=== PATIENT | male | born 1975 | race Caucasian/White ===

== ENCOUNTER → 2016-05-07 16:26 | Outpatient (CLI) | payer MEDICARE, MEDICAID | END | disposition home or self-care (01) | LOC: D.CT 16:26 | DX: R19.7 Diarrhea, unspecified (principal) ==

== ENCOUNTER 2016-06-13 13:22 | Emergency (ER) | payer MEDICARE, MEDICAID ==
[2016-06-13 13:58] LABS: BASOPHILS 0.1 % (0.0-2.0); EOSINOPHILS 0.6 % (0-7); HEMATOCRIT 41.1 % (42.0-54.0); HEMOGLOBIN 13.6 g/dL (13.5-17.5); IMMATURE GRANULOCYTES 0.3 % (0-5); LYMPHOCYTES 8.2 % (15-50); MCH 30.9 pg (26.0-34.0); MCHC 33.1 g/dL (31.0-37.0); MCV 93.4 fL (80.0-100.0); MEAN PLATELET VOLUME 9.8 fL (7.4-10.4); MONOCYTES 7.4 % (2-11); NEUTROPHILS 83.4 % (40-80); PLATELET COUNT 192 10x3/uL (130-400); RDW 14.9 % (11.5-14.5)
[2016-06-13 14:06] LABS: APTT 27.3 SECONDS (22.8-39.4)
[2016-06-13 14:07] LABS: INR 1.06 (0.85-1.17); PROTIME 13.7 SECONDS (11.6-15.0)
[2016-06-13 14:15] LABS: ALBUMIN 3.8 g/dL (3.4-5.0); ANION GAP 9.5 mmol/L (8-16); BILIRUBIN - TOTAL 0.7 mg/dL (0.2-1.3); CALCIUM 8.2 mg/dL (8.5-10.1); CARBON DIOXIDE 29.8 mmol/L (21.0-32.0); CREATININE - SERUM 1.2 mg/dL (0.6-1.3); POTASSIUM - SERUM 3.3 mmol/L (3.5-5.1); PROTEIN - SERUM 7.1 g/dL (6.4-8.2)
[2016-06-13 14:18] LABS: AMYLASE - SERUM 20 U/L (25-115); LIPASE 85 U/L (73-393)
== END 2016-06-13 16:23 | disposition home or self-care (01) ==
LOC: D.ER 13:22
PROVIDERS: Emergency Medicine
DX: K27.9 Peptic ulcer, site unspecified, unspecified as acute or chronic, without hemorrhage or perforation (principal); K29.20 Alcoholic gastritis without bleeding; I10 Essential (primary) hypertension; F17.200 Nicotine dependence, unspecified, uncomplicated

== ENCOUNTER 2016-08-28 19:25 | Inpatient (IN) | payer MEDICARE, MEDICAID ==
[~2016-08-28] VITALS: Ht 175.3 cm; Wt 92.0 kg
[2016-08-28 20:08] LABS: BASOPHILS 0.2 % (0-2); EOSINOPHILS 1.1 % (0-7); HEMATOCRIT 44.8 % (42.0-54.0); HEMOGLOBIN 14.8 g/dL (13.5-17.5); LYMPHOCYTES 17.9 % (15-50); MCH 30.3 pg (26.0-34.0); MCV 91.8 fL (80.0-100.0); MONOCYTES 6.5 % (2-11); NEUTROPHILS 73.3 % (40-80); RBC 4.88 10x6/uL (4.20-6.10); RDW 14.3 % (11.5-14.5); WBC 8.3 10x3/uL (4.8-10.8)
[2016-08-28 20:09] LABS: PLATELET COUNT 264 10x3/uL (130-400)
[2016-08-28 21:18] LABS: ALBUMIN 3.9 g/dL (3.4-5.0); ANION GAP 16.9 mmol/L (8-16); BILIRUBIN - TOTAL 0.46 mg/dL (0.2-1.3); CALCIUM 8.7 mg/dL (8.5-10.1); CARBON DIOXIDE 25.8 mmol/L (21.0-32.0); CREATININE - SERUM 1.4 mg/dL (0.6-1.3); POTASSIUM - SERUM 3.7 mmol/L (3.5-5.1); PROTEIN - SERUM 7.6 g/dL (6.4-8.2)
[2016-08-29] VITALS: BP 154/101; BP 154/106; Ht 175.3 cm; Wt 92.0 kg
[2016-08-29] MEDS ORDERED: PROTONIX40 MG PO (00:33)
[2016-08-29] MEDS ORDERED: ZIAC 10-6.25 MG1 TAB PO (00:34)
[2016-08-29] MEDS ORDERED: HYDROCODONE-APA1 TAB PO (00:34)
[2016-08-29] MEDS ORDERED: CYCLOBENZAPRINE10 MG PO (00:35)
[2016-08-29] MEDS ORDERED: XANAX1 MG PO (00:35)
[2016-08-29] MEDS ORDERED: AMBIEN10 MG PO (00:37)
--- NOTE | 2016-08-29 01:01 | NUR ---
PT ARRIVED VIA STRETCHER FORM ER AT 2334 WITH DX HEMOPTYSIS. PT ASKING FOR A COKE ON ARRIVAL. EXPLAINED TO PT THAT COLA WILL EXACERBATE HIS ULCERS. PT STATED VERBAL UNDERSTANDING. ADMISSIN ASSESSMENT, HISTORY AND HOME MED LIST COMPLETED BY 0025 HRS. NS AT 125CC/HR INITIALTED TO RFA IV. MORPHNE 4MG SIVP GIVNE AT 0050 HRS. FOR C/O ABD AND ARM PIAN 11/04. PROTONIX DRIP 80MG/NS 100CC STARTED AT 10CC/HR AFTER MORPHINE ADMINISTRATION. NON-SLIP SOCKS PLACED ON BILAT FEET ALSO. WILL CONTINUE TO MONITOR. SR UP X2, CALL LIGHT WITHIN REACH.
--- NOTE | 2016-08-29 02:16 | NUR ---
PT AWAKE; STATES PAIN NOW 5/10. REQUESTING PAIN MEDS. INFORMED NEXT DOSE NOT UNTIL 0500. WILL CONTINUE TO MONITOR.
[2016-08-29 04:00] VITALS: BP 165/108
--- NOTE | 2016-08-29 04:22 | NUR ---
PT REQUESTING PAIN MEDS. INFORMED NOT DUE UNTIL 444. WILL CONTINUE TO MONITOR.
[2016-08-29 05:01] LABS: HEMATOCRIT 40.5 % (42.0-54.0); HEMOGLOBIN 12.8 g/dL (13.5-17.5); MCH 29.6 pg (26.0-34.0); MCHC 31.6 g/dL (31.0-37.0); MCV 93.5 fL (80.0-100.0); MEAN PLATELET VOLUME 9.8 fL (7.4-10.4); RBC 4.33 10x6/uL (4.20-6.10); RDW 14.3 % (11.5-14.5)
[2016-08-29 05:15] LABS: PLATELET COUNT 196 10x3/uL (130-400); WBC 5.2 10x3/uL (4.8-10.8)
--- NOTE | 2016-08-29 06:12 | NUR ---
VSS. PT STATES MINIMAL ABD PAIN BUT HAS C/O PULLED MUSCLE PAIN TO L ARM. WILL CONTINUE TO MONITOR.
[2016-08-29 06:43] LABS: LYMPHOCYTES 34 % (15-50); MONOCYTES 6 % (2-11); NEUTROPHILS 58 % (40-80); PLATELET ESTIMATE NORMAL
[2016-08-29 06:44] LABS: PLATELET MORPHOLOGY NORMAL PLT MORPH
--- NOTE | 2016-08-29 07:00 | NUR ---
RECEIVED REPORT. ASSUMED CARE OF PATIENT. CALL LIGHT WITHIN REACH. FLUIDS INFUSING ORDERED AT 125ML/HR. ALERT/ORIENTED. COMPLAINS OF EPIGASTRIC PAIN, PAIN IS BETTER THAN WHEN FIRST COMING TO ER LAST NOC. DENIES NEEDS AT THIS TIME. NO DISTRESS.
[2016-08-29 08:46] VITALS: BP 167/108
--- NOTE | 2016-08-29 09:18 | NUR ---
MEDICATED FOR PAIN AT THIS TIME. PATIENT STATES MORPHINE DOES NOT WORK AND ASKING FOR DILAUDID. EXPLAINED THERE IS NO ORDER FOR DILAUDID AT THIS TIME. PT. VERBALIZED UNDERSTANDING.
--- NOTE | 2016-08-29 11:41 | NUR ---
MEDICATED FOR ANXIETY AT THIS TIME. BP MED NOT AVAILABLE ON UNIT FROM PHARMACY. WILL ADMINISTER ONCE AVAILABLE. PATIENT HAS HIS DAUGHTER AND GIRLFRIEND AT BEDSIDE PER PATIENT. CALL LIGHT WITHIN REACH. IV FLUIDS INFUSING ORDERED.
[2016-08-29 12:12] VITALS: BP 171/112
--- NOTE | 2016-08-29 12:38 | NUR ---
MEDICATION STILL REMAINS UNAVAILABLE FROM PHARMACY AT THIS TIME.
--- NOTE | 2016-08-29 13:47 | NUR ---
ZIAC CONTINUES TO BE UNAVAILABLE FROM PHARMACY.
[2016-08-29 16:23] VITALS: BP 161/108
--- NOTE | 2016-08-29 16:36 | NUR ---
CONSENTS SIGNED AND ON THE CHART FOR EGD WITH . EKG DONE AND ON THE CHART.
--- NOTE | 2016-08-29 17:03 | NUR ---
PATIENT LEFT VIA GERNEY AT THIS TIME FOR EGD. NO DISTRESS UPON LEAVING UNIT.
--- NOTE | 2016-08-29 17:38 | NUR ---
REPORT RECEIVED FROM TOMAS IN GI LAB. PATIENT WILL BE BACK TO UNIT SOON.
--- NOTE | 2016-08-29 18:03 | NUR ---
RECEIVED BACK TO ROOM. PATIENT AMBULATED FROM [facility], INTO PATIENT ROOM, TO RESTROOM AND THEN TO BED. RESP EVEN AND UNLABORED. CALL LIGHT PLACED WITHIN REACH. NO DISTRESS.
--- NOTE | 2016-08-29 18:06 | NUR ---
CALLED QUYNH PER PATIENT REQUEST, [phone], TO LET HER KNOW THAT PATIENT WOULD BE SPENDING THE NIGHT BUT THAT HE DID GREAT WITH THE EGD AND THAT HE IS BACK IN HIS ROOM. QUYNH THANKED THIS DATA ANALYTICS SPECIALIST FOR CALLING.
[2016-08-29 20:00] VITALS: BP 153/98
[2016-08-30] VITALS (7 sets, daily range): BP systolic 138–161; BP diastolic 66–121
--- NOTE | 2016-08-30 00:28 | NUR ---
INITIAL ROUNDS COMPLETED AT 1915 HRS. PT WATCHING TV. NO DISTRESS NOTED. ASSESSMETN COMPTED AT 2000 HRS. VSS. IV TO RFA WITH NS AT 50CC/HR AND PROTONIX DRIP AT 8MG /HR. IV PATENT. LUNGS CTA. PT CONTINUES TO HAVE C/O L SHOULDER PAIN. PT UP AD SIMONE. PM MMEDS GIVEN PER ORDERS. CARAFATE GIVEN AND EXPLAINED TO PT. IV CHANGED TO SL AT 2129 HRS. MORPHINE 4MG SIVP GIVNE FOR C/O L SHOULDER PAIN. SEE MAY. PT CURRENTLY RESTING WITH EYES CLOSED. RESP EVEN AND REGULAR. SR UP X2, CALL LIGHT WITHIN REACH.
--- NOTE | 2016-08-30 01:34 | NUR ---
PT REQUESTING A COLA. EXPLAINED TO PT THAT THE PHOSPHORIC ACID IN COLA WILL EXACERBATE HIS EROSIVE ESOPHAGITIS. PT BECAME ANGRY AND CUSSED AT STAFF. WILL CONTINUE TO MONITOR.
--- NOTE | 2016-08-30 02:18 | NUR ---
MORPHINE 4MG SIVP GIVEN FOR C/O LSHOULDER PAIN. WILL CONTINUE TO MONITOR.
--- NOTE | 2016-08-30 04:24 | NUR ---
PT OUT IN HALLS REQUESTING PAIN MES. INFORMED NEXT MORPHINE DOSE DUE AT 0600. ENCOURAGED PT TO WEAR SLING TO L ARM FOR SUPPORT. WILL CONTINUE TO MONITOR.
[2016-08-30 05:56] LABS: BASOPHILS 0.3 % (0-2); EOSINOPHILS 1.5 % (0-7); HEMATOCRIT 42.4 % (42.0-54.0); HEMOGLOBIN 13.3 g/dL (13.5-17.5); IMMATURE GRANULOCYTES 0.9 % (0-5); LYMPHOCYTES 20.5 % (15-50); MCH 29.4 pg (26.0-34.0); MCHC 31.4 g/dL (31.0-37.0); MCV 93.8 fL (80.0-100.0); MEAN PLATELET VOLUME 10.2 fL (7.4-10.4); NEUTROPHILS 69.8 % (40-80); PLATELET COUNT 201 10x3/uL (130-400); RBC 4.52 10x6/uL (4.20-6.10); RDW 14.1 % (11.5-14.5)
[2016-08-30 05:58] LABS: WBC 6.8 10x3/uL (4.8-10.8)
--- NOTE | 2016-08-30 06:03 | NUR ---
VSS THROUGHOUT NIGHT. PT STATES IV MORPHINE NOT CONTROLLED WITH IV MORPHINE 4MG Q4HRS. WILL CONTINUE TO MONITOR. SR UP X2,CALL LIGHT WITHIN REACH.
[2016-08-30 06:26] LABS: ALBUMIN 3.3 g/dL (3.4-5.0); ANION GAP 12.1 mmol/L (8-16); BILIRUBIN - TOTAL 0.34 mg/dL (0.2-1.3); CALCIUM 8.3 mg/dL (8.5-10.1); CARBON DIOXIDE 29.4 mmol/L (21.0-32.0); CREATININE - SERUM 1.4 mg/dL (0.6-1.3); POTASSIUM - SERUM 3.5 mmol/L (3.5-5.1); PROTEIN - SERUM 6.5 g/dL (6.4-8.2)
--- NOTE | 2016-08-30 07:19 | NUR ---
AM ROUNDS - PT APPEARS TO BE SLEEPING. EQUAL AND NON LABORED BREATHING. CALL SANCHEZ IN REACH. BED AT LOWSET POSITION, SIDE RAILS UP X2. IV TO RIGHT FA, SL. WILL CONTINUE TO MONITOR
--- NOTE | 2016-08-30 10:42 | NUR ---
RATIONALE FOR SCD'S EXPLAINED. REFUSED SCD'S
--- NOTE | 2016-08-30 14:34 | NUR ---
R.FA PIV INFILTRATED. D/C WITH CATHETER TIP FULLY INTACT. 22 GUAGE PLACED IN L.UPPER ARM X1 STICK. DATED, INITIALED AND SL. PT LEAVING WITH THREAD WEAVER FOR XRAY, DENIES ANY FURTHER NEEDS AT THIS TIME. WILL CPOC.
--- NOTE | 2016-08-30 17:31 | OP ---
PATIENT NAME: YELENA KOENIG MEDICAL RECORD: [id number] :77 LOCATION:D.M2 D.2109 ADMISSION DATE:08/28/16 SURGEON: YISEL DEL TORO MD DATE OF OPERATION: 08/29/2016 PROCEDURE: EGD with biopsy. ATTENDING PHYSICIAN: Bhumi Hayden MD PRIMARY CARE PHYSICIAN: Ruben Horn MD INDICATIONS: Mr. Koenig is a 40-year-old gentleman with a history of peptic ulcer disease and panic attacks, who presented to the Emergency Department secondary to episode of hematemesis. Recently, he had a similar episode and was evaluated at [facility] Emergency Department, hemoglobin and hematocrit was noted to be normal and he was discharged with an appointment for an outpatient EGD on 08/31/[address] Piper. During his ER evaluation at [facility], he had a CT scan of the abdomen and pelvis that showed esophageal wall thickening in the distal esophagus. Last October 2015, he had an EGD in [place] with findings of peptic ulcer disease (he was drinking whiskey and taking Aleve at that time). He no longer uses nonsteroidal anti-inflammatory drugs and has an occasional alcoholic beverage. He presents for inpatient EGD order today. His hemoglobin is 12.8, hematocrit 40.5. He presents for inpatient EGD. PREMEDICATIONS: Total IV anesthesia (propofol 160 mg, Versed 2 mg) INSTRUMENT: Olympus video gastroscope. PROCEDURE AND FINDINGS: After receiving informed consent, Mr. Koenig's posterior pharynx was anesthetized with Cetacaine spray, placed in left lateral decubitus position, sedated as per anesthesia. After achieving an adequate level of sedation, gastroscope was introduced per orally and advanced to the duodenum without difficulty. The esophageal mucosa was notable for confluent ulcers in the distal third of the esophagus (mild to moderate), nonhemorrhagic and distal esophageal biopsies were obtained. A small sliding type hiatal hernia was present. There was a moderate amount of retained old food in the gastric body of the stomach, but frequent gastric peristaltic waves were noted. In the cardia was a 0.5 cm sessile polyp that was biopsied. There are multiple prepyloric and antral erosions and the antral biopsies were obtained to rule out Helicobacter pylori. Pylorus was patent and competent. Duodenal mucosa was without erythema or ulcers, appeared normal through the second portion. Biopsies were taken from the second portion of the duodenum to rule out celiac disease. Gastroscope was then withdrawn. Mr. Koenig tolerated the procedure well, no immediate complications. ASSESSMENT: 1. Ulcerative esophagitis (source of hematemesis). 2. Small sliding type hiatal hernia. 3. Gastric polyp in the cardia. 4. Erosive gastritis. RECOMMENDATIONS: 1. Avoid nonsteroidal anti-inflammatory drugs. 2. Protonix 40 mg p.o. b.i.d. and continue. OPERATIVE REPORT [id number] YELENA KOENIG 3. Carafate 1 gram 3 times a day for 1 month. 4. Follow up histopathology. 5. Recommend follow up EGD in 2 months to document healing of ulcerative esophagitis. TRANSINT:[id number] Voice Confirmation ID: [id number] DOCUMENT ID: [id number] YISEL DEL TORO MD at 1731 CC: JULIANE PIPER MD and RUBEN HORN MD [id number] DICTATION DATE: 08/29/16 174 ADOPTION COORDINATOR: 08/29/16 1936 ADM IN [facility] [address] [place] [address]
--- NOTE | 2016-08-30 18:34 | NUR ---
PT HAD ME PAGED DOCTOR REQUESTING HIS AMBIEN FOR SLEEP. ALEXANDRO MCRAE APN CALLED BACK BUT ONLY WANTED PT TO HAVE MELATONIN AND NOT AMBIEN. ORDERS PLACED. WILL CTM.
--- NOTE | 2016-08-30 23:26 | NUR ---
NURSE ROUNDS 20:30 - PT AWAKE, ALERT, ORIENTED, REQUESTING HIS PAIN MEDICATION AND PRN SLEEP MEDS. PT STATES HE DOES NOT WANT TO BE BOTHERED THE REST OF THE NIGHT, AND I EXPLAINED TO PT THAT IF I GIVE HIM DILAUDID, XANAX, AND AMBIEN, THEN WE WILL HAVE TO GET HIS V/S Q 4 HOURS AND PRN. PT STATED THAT HE WOULD ALLOW US TO DO THAT. PT DENIES ANY FURTHER NEEDS. CONTINUE TO MONITOR CLOSELY. BED LOW, CALL LIGHT IN REACH, SIDE RAILS X 2, HOB 10 DEGREES. PT IS UP AD SIMONE AND STATES THAT HE FEELS MUCH BETTER FROM WHEN HE CAME IN.
--- NOTE | 2016-08-30 23:55 | NUR ---
PT REMOVED HIS IV FROM HIS UPPER LEFT ARM R/T INCREASED PAIN AND DISCOMFORT. PT DID SO WITHOUT WAITING FOR ME TO GET TO HIM I HAVE BEEN WITH OTHER PATIENTS. PT IS ASKING FOR MORE XANAX, AND PAIN MEDICATION AT THIS TIME, IN WHICH I TOLD HIM HE COULD NOT HAVE ANYTHING UNTIL 2:30 AM. I HAVE ACTUALLY TOLD PT THIS TWICE, ONCE BEING AT 20:30 WITH HIS FIRST DOSE. PT IS CLEARLY AGITATED, BUT DENIES ANY OTHER NEEDS. CONTINUE TO MONITOR CLOSELY.
--- NOTE | 2016-08-31 01:31 | NUR ---
PT WALKED OUT TO NURSES DESK ASKING FOR MORE MEDICATIONS AND ASKING WHICH ONES HE CAN HAVE AT THIS TIME. I EXPLAINED TO PT THAT THE ONLY MEDICATION HE CAN HAVE WILL BE THE PRN DILAUDID AND NOT UNTIL 02:30 SINCE IT IS Q 6 HOURS PRN. CONTINUE TO MONITOR. WILL RESITE IV R/T PT REMOVING THE FIRST ONE.
[2016-08-31 03:43] VITALS: BP 151/109
--- NOTE | 2016-08-31 04:50 | NUR ---
DUE TO PT REMOVING HIS IV FROM HIS LEFT UPPER ARM, I ADMINISTERED HIS PRN DILAUDID IM IN THE RIGHT VENTROGLUTEAL. CONTINUE TO MONITOR CLOSELY.
[2016-08-31 05:42] LABS: BASOPHILS 0.2 % (0-2); EOSINOPHILS 1.9 % (0-7); HEMATOCRIT 40.1 % (42.0-54.0); HEMOGLOBIN 12.8 g/dL (13.5-17.5); MCH 29.6 pg (26.0-34.0); MCHC 31.9 g/dL (31.0-37.0); MCV 92.8 fL (80.0-100.0); MEAN PLATELET VOLUME 10.2 fL (7.4-10.4); MONOCYTES 8.5 % (2-11); NEUTROPHILS 59.4 % (40-80); PLATELET COUNT 190 10x3/uL (130-400); RBC 4.32 10x6/uL (4.20-6.10); RDW 13.9 % (11.5-14.5)
[2016-08-31 05:57] LABS: WBC 4.1 10x3/uL (4.8-10.8)
[2016-08-31 06:09] LABS: ALBUMIN 3.1 g/dL (3.4-5.0); ANION GAP 9.9 mmol/L (8-16); BILIRUBIN - TOTAL 0.36 mg/dL (0.2-1.3); CALCIUM 8.5 mg/dL (8.5-10.1); CARBON DIOXIDE 31.8 mmol/L (21.0-32.0); CREATININE - SERUM 1.4 mg/dL (0.6-1.3); POTASSIUM - SERUM 3.7 mmol/L (3.5-5.1); PROTEIN - SERUM 6.3 g/dL (6.4-8.2)
--- NOTE | 2016-08-31 07:30 | NUR ---
PT IS SITTING ON THE SIDE OF HIS BED. ALERT AND ORIENTED X 3. HE VOICED COMPLAINT OF LEFT SHOULDER PAIN AT ALL TIMES, NOT RELIEVED BY PAIN MEDS. WILL NOTIFY MD. CALL LIGHT IS IN EASY REACH.
[2016-08-31 09:25] VITALS: BP 128/66
--- NOTE | 2016-08-31 09:31 | NUR ---
RESTS WITH EYES CLOSED. CALL LIGHT IN REACH. WILL MONITOR NEEDS.
--- NOTE | 2016-08-31 12:09 | NUR ---
PT IS RESTING IN HIS ROOM EATING LUNCH. NO ACUTE DISTRESS NOTED.
[2016-08-31 12:21] VITALS: BP 149/89
--- NOTE | 2016-08-31 14:15 | NUR ---
PT IS RESTING QUIETLY IN BED WITH EYES CLOSED. NO ACUTE DISTRESS NOTED.
[2016-08-31 15:32] VITALS: BP 124/97
--- NOTE | 2016-08-31 15:57 | NUR ---
PT RESTING IN BED WITH EYES OPEN. NO NEEDS VOICED.
--- NOTE | 2016-08-31 19:30 | NUR ---
RECEIVED PT IN ROOM WALKING AROUND DENIES ANY NEEDS OR DISCOMFORT AT THIS TIME NAD NOTED
[2016-08-31 20:20] VITALS: BP 161/94
[2016-08-31 23:52] VITALS: BP 139/73
[2016-09-01 03:53] VITALS: BP 141/72
[2016-09-01 05:23] LABS: BASOPHILS 0.2 % (0-2); EOSINOPHILS 2.8 % (0-7); HEMATOCRIT 39.1 % (42.0-54.0); HEMOGLOBIN 12.3 g/dL (13.5-17.5); IMMATURE GRANULOCYTES 1.5 % (0-5); LYMPHOCYTES 27.4 % (15-50); MCH 29.4 pg (26.0-34.0); MCHC 31.5 g/dL (31.0-37.0); MCV 93.5 fL (80.0-100.0); MEAN PLATELET VOLUME 10.2 fL (7.4-10.4); MONOCYTES 8.7 % (2-11); NEUTROPHILS 59.4 % (40-80); PLATELET COUNT 191 10x3/uL (130-400); RBC 4.18 10x6/uL (4.20-6.10); RDW 14.1 % (11.5-14.5); WBC 4.7 10x3/uL (4.8-10.8)
[2016-09-01 05:52] LABS: ANION GAP 10.1 mmol/L (8-16); BILIRUBIN - TOTAL 0.3 mg/dL (0.2-1.3); CALCIUM 8.5 mg/dL (8.5-10.1); CARBON DIOXIDE 31.4 mmol/L (21.0-32.0); CREATININE - SERUM 1.4 mg/dL (0.6-1.3); POTASSIUM - SERUM 3.5 mmol/L (3.5-5.1); PROTEIN - SERUM 6.1 g/dL (6.4-8.2)
--- NOTE | 2016-09-01 07:53 | NUR ---
AM ROUNDING DONE WITH NO COMPLAINTS OR REUQESTS AT PRESENT TIME. NO IV AT THIS TIME SEEN. ON ROOM AIR. ON EP, LAB VALUES ARE GOOD. DENIES ANY NAUSEA AT PRESENT TIME. WILL MONITOR.
--- NOTE | 2016-09-01 10:09 | NUR ---
FSBS IS NOW 63. I CC IM OF GLUCOGEN GIVEN PATIENT STATES THAT HE CAN NOT EAT. WILL CONTINUE TO MONITOR.
[2016-09-01 16:03] VITALS: BP 175/105
--- NOTE | 2016-09-01 16:23 | NUR ---
SALINE LOCK OF 22 G TO RIGHT HAND PER EMILY DAVID RN ICU.
--- NOTE | 2016-09-01 17:34 | NUR ---
DENIES NEEDS AT PRESENT TIME. WILL BE NPO PAST MIDNIGHT.
[2016-09-01 20:00] VITALS: BP 168/92
--- NOTE | 2016-09-01 20:00 | NUR ---
PT IN BED WITH HOB UP FOR COMFORT. WATCHING TV. ALERT & ORIENTED. ELECTROLYTE PROTOCOL. ORIF LEFT HUMERUS SURGERY SCHEDULED FOR 09/02/16. NPO AT MIGNIGHT. PT STATES HE HAS A PAIN LEVEL OF 8/10 IN LEFT SHOULDER. BED IN LOWEST POSITION AND CALL LIGHT WITHIN REACH.
--- NOTE | 2016-09-02 | NUR ---
PT IN BED WITH HOB UP FOR COMFORT. RESTING QUIWTLY. BED IN LOWEST POSITION AND CALL LIGHT WITHIN REACH.
--- NOTE | 2016-09-02 03:41 | NUR ---
TOLL COLLECTOR SUPERVISOR AT BEDSIDE TO OBTAIN VITALS, CALL LIGHT IN REACH. WILL CONTINUE WITH PLAN OF CARE.
--- NOTE | 2016-09-02 03:46 | NUR ---
PT UP WALKING LAPS IN HALLWAY WITH A STEADY GATE.
--- NOTE | 2016-09-02 03:56 | NUR ---
PT'S HOLA PRESSED CALL LIGHT. I WENT INTO PT'S ROOM. PT WAS LAYING ON BED. PT'S FIANCE STATED HE HAD TO PICK HER UP OFF THE GROUND. BUT GAVE NO SPECIFICS. I GAVE PT HER NORCO. AND OFFERED ICE AND HEAT AND PT REFUSED BOTH AND STATED, "I CAN NOT DO THAT. IT DOESN.T HELP." PT'S HOLA THEN STATED, "WE KNOW WHAT WORKS. AND THE DOCTORS WONT DO ANYTHING."
[2016-09-02 04:00] VITALS: BP 146/95
--- NOTE | 2016-09-02 04:02 | NUR ---
PT STATED, "I ALMOST FELL OUT OF BED AND HAD TO CATCH MYSELF. AND IT HURT MY SHOULDER." PT HAS A LADY SLEEPING IN BED WITH HIM.
--- NOTE | 2016-09-02 05:47 | NUR ---
PT LYING IN BED WITH WOMAN. EYES CLSOED CHESAT RISING AND FALLING BED IN LOWEST POSITION AND CALL IGHT WITHIN REACH.
[2016-09-02 06:02] LABS: BASOPHILS 0.4 % (0-2); EOSINOPHILS 1.8 % (0-7); IMMATURE GRANULOCYTES 1.8 % (0-5); LYMPHOCYTES 25.5 % (15-50); MCH 29.8 pg (26.0-34.0); MCHC 31.7 g/dL (31.0-37.0); MEAN PLATELET VOLUME 10.2 fL (7.4-10.4); MONOCYTES 10.4 % (2-11); NEUTROPHILS 60.1 % (40-80); PLATELET COUNT 216 10x3/uL (130-400); RBC 4.36 10x6/uL (4.20-6.10)
[2016-09-02 06:26] LABS: ALBUMIN 3.3 g/dL (3.4-5.0); ANION GAP 11.4 mmol/L (8-16); BILIRUBIN - TOTAL 0.31 mg/dL (0.2-1.3); CALCIUM 8.9 mg/dL (8.5-10.1); CARBON DIOXIDE 32.4 mmol/L (21.0-32.0); CREATININE - SERUM 1.4 mg/dL (0.6-1.3); POTASSIUM - SERUM 3.8 mmol/L (3.5-5.1); PROTEIN - SERUM 6.5 g/dL (6.4-8.2)
--- NOTE | 2016-09-02 07:17 | NUR ---
AM ROUNDING DONE WITH PATIENT APPEARING TO BE ALSEEP IN PATIENT WITH FEMALE MEMBER. NPO PAST MIDNIGHT FOR SURGERY THIS AM.
[2016-09-02 08:16] VITALS: BP 151/104
--- NOTE | 2016-09-02 10:27 | NUR ---
WENT TO FLUSH IV AGAIN TO RIGHT HAND AND IT IS OUT. WILL ATTEMPT ANOTHER IV FOR SURGERY.
--- NOTE | 2016-09-02 11:00 | NUR ---
20 GAUGE IV SITED TO RIGHT AC WITH ONE ATTEMPT. SECURED WITH TAPE, COVERED WITH OP SITE. INITIALED, DATED. TOLERATED WELL.
[2016-09-02 11:42] VITALS: BP 156/99
--- NOTE | 2016-09-02 15:15 | NUR ---
TO OR VIA BED.
--- NOTE | 2016-09-02 17:37 | NUR ---
PAULETTE FROM ANESTHESIA ADMINISTERED LABATELOL FOR PT BP AT THIS TIME.
--- NOTE | 2016-09-02 17:52 | NUR ---
STILL OFF FLOOR AT THIS TIME.
--- NOTE | 2016-09-02 18:08 | NUR ---
RETURNS FROM RR WITH O2 AT 4L PER NC. SLING WITH HAND BALL TO LEFT SIDE. ABLE TO WIGGLE FINGERS WITHOUT PROBLEMS. WILL MONITOR.
[2016-09-02 18:11] VITALS: BP 175/94
--- NOTE | 2016-09-02 19:10 | NUR ---
AWAKE, ORIENTED X 4. HAD FEW SIPS OF WATER, SWALLOWING WITHOUT DIFFICULTY. REQUESTED PAIN MEDICATION. RATING PAIN LEVEL AT 10 ON 0-10 NUMBER SCALE OF HIS LEFT SHOULDER. WILL CHECK ON WHEN HE CAN HAVE NEXT DOSE. IV IN R AC WITH NS INFUSING AT 20 ML/HR, INTACT. A VISITOR IS PRESENT IN ROOM.
[2016-09-02 20:00] VITALS: BP 166/113
--- NOTE | 2016-09-02 20:40 | NUR ---
AMBULATING IN ROOM. REQUESTED PAIN MEDICATION FOR PAIN OF LEFT SHOULDER RATED AT A 10 0N 0-10 NUMBER SCALE. ADMIN SCHED MEDS AND SET UP TRUCK CRANE OPERATOR HELPER WITH DILAUDID AT 0.2MG Q10 MIN WITH 4MG/4HR LOCK OUT. NO OTHER NEEDS VOICED.
--- NOTE | 2016-09-02 23:02 | NUR ---
REQUESTED TO BE UNHOOK FROM IV TO AMBULATE TO BR. AMBULATED WITH STEADY GAIT. NO S/S OF SEDATION. REQUESTED AMBIEN AND LIGHTS OUT TO SLEEP.
[2016-09-03 04:00] VITALS: BP 198/125
--- NOTE | 2016-09-03 04:30 | NUR ---
PULLED IV OUT. RESITED IN LEFT HAND 20 G.
[2016-09-03 06:04] LABS: BASOPHILS 0.1 % (0-2); EOSINOPHILS 0.1 % (0-7); HEMATOCRIT 39.3 % (42.0-54.0); HEMOGLOBIN 12.5 g/dL (13.5-17.5); IMMATURE GRANULOCYTES 0.6 % (0-5); LYMPHOCYTES 5.3 % (15-50); MCH 29.9 pg (26.0-34.0); MCHC 31.8 g/dL (31.0-37.0); MEAN PLATELET VOLUME 10.4 fL (7.4-10.4); NEUTROPHILS 87.9 % (40-80); PLATELET COUNT 259 10x3/uL (130-400); RBC 4.18 10x6/uL (4.20-6.10)
[2016-09-03 06:08] LABS: WBC 12.2 10x3/uL (4.8-10.8)
[2016-09-03 06:48] LABS: ALBUMIN 3.4 g/dL (3.4-5.0); ANION GAP 17.7 mmol/L (8-16); BILIRUBIN - TOTAL 0.3 mg/dL (0.2-1.3); CREATININE - SERUM 1.7 mg/dL (0.6-1.3); PROTEIN - SERUM 6.8 g/dL (6.4-8.2)
[2016-09-03 06:50] LABS: CARBON DIOXIDE 23.3 mmol/L (21.0-32.0)
--- NOTE | 2016-09-03 07:26 | NUR ---
AM ROUNDING DONE WITH PATIENT AND FEMALE MEMBER ALSEEP IN BED. DRESSING TO LEFT SHOULDER, DRY AND INTACT. IV OF NS INFUSING AT 30 CC TO RIGHT HAND ALONG WITH BAG TESTER DILAUDID FOR PAIN CONTROL. ON ROOM AIR. ON EP, K+ IS 4.0. WILL MONITOR AND ASSESS WHEN AWAKE
[2016-09-03 08:00] VITALS: BP 170/107
--- NOTE | 2016-09-03 08:06 | NUR ---
DARIO ZUNIGA WITH ORTHO HERE AND REMOVED DRESSING FROM LEFT SHOULDER. CLIPS INTACTT, BRUISING SEEN TO LEFT SHOULDER POST-OP. CLEAN MEPILEX BORDER AG PLACED TO INCISION SITE AND SLING RE-APPLIED. PATIENT WAS INSTRUCTED TO WEAR SLING.
[2016-09-03] MEDS ORDERED: DILAUDID4 MG PO (08:11)
--- NOTE | 2016-09-03 09:20 | NUR ---
PATIENT IS SITTING UP IN CHAIR EATING BREAKFAST. STREET RAILWAY LINE INSTALLER D'C ORDERED AND IV IS SALINE LOCK FOR NOW.
--- NOTE | 2016-09-03 11:32 | NUR ---
Patient Name: YELENA KOENIG Admission Status: ER Accout number: [id number] Admission Date: 08-31-2016 : 1975 Admission Diagnosis:HEMATEMESIS Attending: SHANNAN Current LOS: 3 Anticipated DC Date: 09-03-2016 Planned Disposition: Home Primary Insurance: [facility] Discharge Planning Comments: * Is the patient Alert and Oriented? Yes 0 * How many steps to enter\exit or inside your home? 18 0 * PCP DR. SMITH 0 * Pharmacy [facility] 0 * Preadmission Environment Home with Family 0 * ADLs Independent 0 * Equipment None 0 * Other Equipment NO MEDICAL EQUIPMENT PROVIDER PREFERENCE 0 * List name and contact numbers for known caregivers / representatives who currently or will assist patient after discharge: ROSIBEL KOENIG, SPOUSE, 0 * Community resources currently utilized None 0 * Please name any agencies selected above. NONE 0 * Additional services required to return to the preadmission environment? No 0 * Can the patient safely return to the preadmission environment? Yes 0 * Has this patient been hospitalized within the prior 30 days at any hospital? No 0 CM MET WITH PT IN ROOM TO DISCUSS DISCHARGE PLANNING AND NEEDS. PT REPORTS LIVING AT HOME INDEPENDENTLY WITH HIS MINOR CHILDREN. PT HAS NO MEDICAL EQUIPMENT AND NO OUTSIDE SERVICES ASSISTING IN THE HOME. CM DISCUSSED AVAILABILITY OF HOME HEALTH, REHAB SERVICES AND MEDICAL EQUIPMENT. PT DENIES DISCHARGE NEEDS, REPORTS HIS GIRLFRIEND OR FRIEND WILL PICK HIM UP FOR DISCHARGE HOME. IMPORTANT MESSAGE FROM MEDICARE PROVIDED AND EXPLAINED. Seating Captain: Mane Sweeney
[2016-09-03] MEDS ORDERED: PROTONIX40 MG PO (11:52)
[2016-09-03] MEDS ORDERED: CARAFATE1 G/10 ML PO (11:52)
[2016-09-03 12:00] VITALS: BP 142/98
--- NOTE | 2016-09-03 13:10 | NUR ---
UP AMBULATING IN ROOM. COMPLAINTS OF PAIN 5/10 TO LEFT SHOULDER. DILAUDID 4MG PO GIVEN FOR DISCOMFORT. PATIENT ASKED ME IF I COULD CALL IN SOME XANAX FOR HIM HE IS OUT, I TOLD HIM THAT HE WILL NEED TO MAKE A FOLLOW UP WITH HIS PRESCRIBING DOCTOR FOR THIS. AWAITING DARIO ZUNIGA TO SIGN WRITTEN SCRIPT FOR DILAUDID FOR DISCHARGE.
--- NOTE | 2016-09-03 13:16 | NUR ---
2 MEPILEX BORDER AG GIVEN TO PATIENT TO TAKE WITH HIM IN CASE THE ONE ON HIS LEFT SHOULDER FALLS OFF.
--- NOTE | 2016-09-03 13:33 | NUR ---
VERBAL AND WRITTEN DISCHARGE INSTRUCTIONS GIVEN TO PATIENT ALONG WITH WRITTEN SCRIPT FOR DILAUDID. COPY OF SCRIPT PLACED IN CHART. SALINE LOCK REMOVED WITH CATH TIP INTACT. DISCHARGED HOME VIA WHEELCHAIR.
--- NOTE | 2016-09-06 09:22 | OP ---
PATIENT NAME: YELENA KOENIG MEDICAL RECORD: [id number] :77 LOCATION:D.M2 D.2109 ADMISSION DATE:08/31/16 SURGEON: BRIAN ROSAS MD DATE OF OPERATION: 09/02/2016 DATE OF OPERATION: 09/02/2016. PREOPERATIVE DIAGNOSIS: Proximal humeral fracture--displaced greater tuberosity fracture. POSTOPERATIVE DIAGNOSIS: Proximal humeral fracture--displaced greater tuberosity fracture with a large bicipital tendon cyst. PROCEDURE: 1. Open reduction internal fixation of proximal humerus fracture as described above. 2. Excision of bicipital cyst with permanent path sent. SURGEON: Brian Rosas MD. ANESTHESIA: General. INTRAOPERATIVE COMPLICATIONS: None. SUMMARY OF PATHOLOGIC FINDINGS: Upon entering the shoulder large bicipital cyst was noted. This was excised. It did appear to be a synovial cyst of the bicipital tendon. The proximal humeral bone structure was less than optimal for 41-year-old; however, the patient does have a history of severe alcoholism. OPERATIVE SUMMARY IN DETAIL: After obtaining the appropriate preoperative orthopedic surgery consent as well as anesthetic consultation, evaluation and clearance, the patient was brought to the operating room and placed on the operating table in supine position. After general endotracheal anesthesia was administered, the patient was placed in the beach chair position. All pressure points were well padded. He was held firmly to the operating table using the vacuum pack suction system. The left upper extremity and shoulder were then prepped and draped in a routine sterile fashion. The arm was held in the Trimano arm holding device. Deltopectoral incision was taken down. Clavipectoral fascia was incised. Conjoined tendon was gently retracted medially and the deltoid was retracted laterally using the Burton retractor. The large bicipital cyst as described above was gently excised and sent to pathology for permanent section. At this point, the fracture fragments were identified and under fluoroscopic guidance, a VariAx 4-hole plate was then placed with a combination of both compression as well as locking screws to hold the reduced greater tuberosity plate back in at the appropriate position. It was placed a little farther posteriorly than usual as this was the area of the fracture. Having completed this final radiographs were taken and submitted to radiology for review. Wound was copiously irrigated and closed with #1 Vicryl followed by 2-0 Vicryl and skin carlos. Sterile dressings were applied. The patient was awakened, taken to recovery room in stable condition. All final needle and sponge counts were correct. TRANSINT:[id number] Voice Confirmation ID: [id number] DOCUMENT ID: [id number] OPERATIVE REPORT [id number] YELENA KOENIG MD, BRIAN MARC at 0922 CC: [id number] DICTATION DATE: 09/02/162005 NUCLEAR DESIGN ENGINEER: 09/03/16 0331 DIS IN 09/03/16 [place] [id number]
--- NOTE | 2016-09-09 17:25 | DS ---
PATIENT:YELENA KOENIG :[birth year] MEDICAL RECORD: [id number] DISCHARGE SUMMARY ADMISSION DATE: 08/31/16 DISCHARGE DATE: 09/03/16 DATE OF ADMISSION: 08/28/2016. DATE OF DISCHARGE: 09/03/2016. ADMITTING DIAGNOSES: 1. Acute problems: Hemetemesis, anemia due to acute blood loss, acute kidney injury. 2. Chronic problems: Stomach peptic ulcer, anxiety, chronic pain. HOSPITAL COURSE: This is a 41-year-old male of Dr. Horn', admitted with diagnoses as outlined above. Details are well-outlined in the history of the present illness, H&P. All events, lab procedures, diagnostic testing is well documented in the records. The patient was admitted, made n.p.o., GI consulted with Dr. Piper and Alok. Dr. Dickinson did round and took the patient to the GI lab. The patient underwent EGD showing mild to moderate distal ulcerative esophagitis, nonhemorrhagic. The distal esophagus was biopsied. He has small sliding type hiatal hernia, erosive enteritis, normal duodenum. The patient was put on Protonix b.i.d., Carafate 1 gram t.i.d. for a month. He was instructed to avoid NSAIDs. Second problem, he had with his episode of hemetemesis was falling out of the bed prior to coming to the hospital. He was complaining of left shoulder pain. He was found to have a left humeral fracture. He underwent open reduction internal fixation of left shoulder by Dr. Bower. He convalesced well overnight. Today, he is afebrile, vital signs stable. He is stable for dismissal home. His diastolic blood pressure noted to be a little bit high, felt likely due to pain as well as systolic blood pressure. VITAL SIGNS: He is afebrile, pulse 109, respirations 18, blood pressure 166/113. LABORATORY DATA: White count 12, hemoglobin 12.5, platelets 259. Sodium 135, potassium 4.0, chloride 98, CO2 of 23, BUN 18, serum creatinine 1.7 and he tended to run this admission, creatinine stayed 1.4 the entire time. Glucose 225. Bilirubin 0.3, AST 41, ALT 75. We will have him follow up with Dr. Horn, have labs all rechecked and blood pressure followed. That was the first really high blood sugar we had really seen here. Blood sugar this admission ranging anywhere from 100-128 until today, it was noted to be 225. I am not sure that was fasting or not. He is dismissed home. Please refer to med rec. Dr. Bower's office gave him a pain regimen of Dilaudid. FOLLOWUP: He will see Dr. Bower in clinic in 10-14 days. He was given instructions on the incision site care by Noemy Landry APN with Dr. Bower. DISCHARGE DIAGNOSES: 1. Acute problems: Hemetemesis, anemia due to acute blood loss, acute kidney injury. 2. Chronic problems: Stomach peptic ulcer, anxiety, chronic pain. 3. Ulcerative esophagitis, gastritis, small gastric polyp. 4. Left humeral fracture status post open reduction internal fixation. Greater than 30 minutes spent on this discharge. DISCHARGE SUMMARY REPORT [id number] YELENA KOENIG TRANSINT:[id number] Voice Confirmation ID: [id number] DOCUMENT ID: [id number] Dictated By: ALEXANDRO MCRAE RN I have interviewed/examined the above patient and agree with these documented findings. JOHN FLOYD MD at 1254 at 1725 CC: [id number] DICTATION DATE: 09/03/16 1151 BLOCK CUBER: 09/04/16 0754 DIS IN 09/03/16 [facility] [address] [place] [address]
== END 2016-09-03 13:34 | disposition home or self-care (01) | DRG 493 ==
LOC: D.ER 19:25 → D.M2 22:03 → OBSVTIME 22:03 → D.M2 22:03
PROVIDERS: Emergency Medicine; Internal Medicine Gastroenterology; ADMIT Family Medicine
PROC: 0DB58ZX Excision of Esophagus, Via Natural or Artificial Opening Endoscopic, Diagnostic (ICD-10-PCS; principal; 2016-08-29 17:03)
PROC: 0PSG04Z Reposition Left Humeral Shaft with Internal Fixation Device, Open Approach (ICD-10-PCS; 2016-09-02)
PROC: 0LB40ZZ Excision of Left Upper Arm Tendon, Open Approach (ICD-10-PCS; 2016-09-02)
DX: S42.302A Unspecified fracture of shaft of humerus, left arm, initial encounter for closed fracture (principal); K92.0 Hematemesis; D62 Acute posthemorrhagic anemia; N17.9 Acute kidney failure, unspecified; K22.10 Ulcer of esophagus without bleeding; W06.XXXA Fall from bed, initial encounter; F41.9 Anxiety disorder, unspecified; K44.9 Diaphragmatic hernia without obstruction or gangrene; K31.7 Polyp of stomach and duodenum; K29.00 Acute gastritis without bleeding

== ENCOUNTER 2016-09-12 21:09 | Emergency (ER) | payer MEDICARE, MEDICAID ==
[2016-08-29] VITALS: BMI 28.1
[~2016-09-12 21:09] MED LIST: AMBIEN10 MG PO; CARAFATE1 G/10 ML PO; CYCLOBENZAPRINE10 MG PO; DILAUDID4 MG PO; HYDROCODONE-APA1 TAB PO; PROTONIX40 MG PO; XANAX1 MG PO; ZIAC 10-6.25 MG1 TAB PO
[2016-09-12 22:35] LABS: BASOPHILS 0.3 % (0-2); EOSINOPHILS 1.2 % (0-7); HEMATOCRIT 39.9 % (42.0-54.0); HEMOGLOBIN 12.8 g/dL (13.5-17.5); IMMATURE GRANULOCYTES 2.4 % (0-5); LYMPHOCYTES 24.2 % (15-50); MCHC 32.1 g/dL (31.0-37.0); MCV 93.4 fL (80.0-100.0); MEAN PLATELET VOLUME 9.8 fL (7.4-10.4); MONOCYTES 5.9 % (2-11); PLATELET COUNT 269 10x3/uL (130-400); RBC 4.27 10x6/uL (4.20-6.10); RDW 14.9 % (11.5-14.5); WBC 5.8 10x3/uL (4.8-10.8)
== END 2016-09-13 00:13 | disposition home or self-care (01) ==
LOC: D.ER 21:09
PROVIDERS: Family Medicine
DX: T81.31XA Disruption of external operation (surgical) wound, not elsewhere classified, initial encounter (principal)

== ENCOUNTER 2016-10-30 13:42 | Emergency (ER) | payer MEDICARE, MEDICAID ==
[2016-08-29] VITALS: BMI 28.1
== END 2016-10-30 15:15 | disposition home or self-care (01) ==
LOC: D.ER 13:42
DX: M25.512 Pain in left shoulder (principal); I10 Essential (primary) hypertension; K27.9 Peptic ulcer, site unspecified, unspecified as acute or chronic, without hemorrhage or perforation

== ENCOUNTER → 2016-11-05 14:43 | Outpatient (CLI) | payer MEDICARE, MEDICAID ==
[2016-08-29] VITALS: BMI 28.1
== END | disposition home or self-care (01) ==
LOC: D.CT 11-01 14:30
DX: M25.512 Pain in left shoulder (principal)

== ENCOUNTER → 2016-12-14 15:56 | Outpatient (CLI) | payer MEDICARE, MEDICAID ==
[2016-08-29] VITALS: BMI 28.1
== END | disposition home or self-care (01) ==
LOC: D.CT 15:56
DX: R59.0 Localized enlarged lymph nodes (principal)

== ENCOUNTER 2016-12-18 23:04 | Emergency (ER) | payer MEDICARE, MEDICAID ==
[2016-08-29] VITALS: BMI 28.1
== END 2016-12-19 00:29 | disposition home or self-care (01) ==
LOC: D.ER 23:04
DX: S62.92XA Unspecified fracture of left hand, initial encounter for closed fracture (principal); W50.0XXA Accidental hit or strike by another person, initial encounter; Y93.89 Activity, other specified; Y92.029 Unspecified place in mobile home as the place of occurrence of the external cause; I10 Essential (primary) hypertension

== ENCOUNTER 2016-12-23 08:18 | Day surgery (SDC) | payer MEDICARE, MEDICAID ==
[2016-12-23 09:06] LABS: HEMATOCRIT 40.6 % (42.0-54.0); MCH 29.2 pg (26.0-34.0); MCV 91.2 fL (80.0-100.0); MEAN PLATELET VOLUME 9.9 fL (7.4-10.4); RBC 4.45 10x6/uL (4.20-6.10); RDW 15.2 % (11.5-14.5)
[2016-12-23 09:26] LABS: CALCIUM 8.3 mg/dL (8.5-10.1); CARBON DIOXIDE 28.7 mmol/L (21.0-32.0); CREATININE - SERUM 1.4 mg/dL (0.6-1.3); POTASSIUM - SERUM 3.7 mmol/L (3.5-5.1)
[2016-12-23] MEDS ORDERED: CARDURA4 MG PO (09:27)
[2016-12-23] MEDS ORDERED: PERCOCET 10/3251 TA1 PO ×2 (09:28→12:55)
[2016-12-23 09:33] VITALS: BMI 28.8
--- NOTE | 2016-12-23 15:37 | NUR ---
1521--PT REQUESTS PAIN MED BEFORE LEAVING, SAYS IT WILL BE LATER BEFORE HE GETS TO THE PHARMACY. PERCOCET 10/325MG GIVEN PO, RATES PAIN 12/05. BRADLEY SMYTH
--- NOTE | 2016-12-23 15:40 | NUR ---
1525--IV DC'D, PT UP TO DRESS AT THIS TIME. BRADLEY SMYTH 6600--DISCHARGE INSTRUCTIONS GIVEN, PT VERBALIZES UNDERSTANDING. PT OFF UNIT VIA WC. BRADLEY SMYTH
--- NOTE | 2016-12-27 11:28 | OP ---
PATIENT NAME: YELENA KOENIG MEDICAL RECORD: [id number] :77 LOCATION:[facility] ADMISSION DATE: SURGEON: BRIAN ROSAS MD DATE OF OPERATION: 12/23/2016 PREOPERATIVE DIAGNOSIS: Painful hardware of the left shoulder. POSTOPERATIVE DIAGNOSIS: Painful hardware of the left shoulder. PROCEDURE: Removal of painful hardware of the left shoulder. SURGEON: Brian Rosas MD ANESTHESIA: General. INTRAOPERATIVE COMPLICATIONS: None. SUMMARY OF PATHOLOGIC FINDINGS: The patient had a periarticular VariAx plate from [employer] in the left upper extremity, status post proximal humeral fracture. OPERATIVE SUMMARY IN DETAIL: After obtaining the appropriate orthopedic surgery consent as well as anesthetic consultation, evaluation and clearance, the patient was brought to the operating room and placed on the operating table in the supine position. After general laryngeal mask was administered, the patient was placed in the beach chair position. All pressure points were well padded. He was held firmly to the operating table using the vacuum pack suction system. Left upper extremity and shoulder were then prepped and draped in routine sterile fashion. Previously utilized deltopectoral incision was taken down between the deltoid and the pectoralis. The deltoid was gently retracted laterally while the pectoralis was retracted medially along with the conjoined tendon and complete exposure was carried out. The soft tissue over it was taken down with electrocautery. The plate was exposed in its entirety. All screws were removed with little degree of difficulty as was the plate. Having completed this, x-rays were taken again and these were taken before the plate was taken out and right after the plate was taken out. These were submitted for radiologist review. Wound was then irrigated and closed with #1 Vicryl, followed by skin carlos. Sterile dressings were applied. The patient was awakened and taken to the recovery room in stable condition. All final needle and sponge counts were correct. TRANSINT:[id number] Voice Confirmation ID: [id number] DOCUMENT ID: [id number] BRIAN ROSAS MD at 1128 CC: [id number] DICTATION DATE: 12/23/16 1252 CEREAL MILLER: 12/23/16 1321 [facility] 12/23/16 [place] [address]
== END 2016-12-23 15:40 | disposition home or self-care (01) ==
LOC: D.OPS 08:18
PROVIDERS: Anesthesiology
DX: M25.512 Pain in left shoulder (principal); I10 Essential (primary) hypertension; Z01.812 Encounter for preprocedural laboratory examination; M19.90 Unspecified osteoarthritis, unspecified site

== ENCOUNTER 2017-04-16 02:56 | Emergency (ER) | payer MEDICARE ==
[~2017-04-16 02:56] MED LIST changes: +CARDURA4 MG PO; +PERCOCET 10/3251 TA1 PO
[2017-04-16 03:23] LABS: APPEARANCE CLEAR (CLEAR); BILIRUBIN NEGATIVE (NEGATIVE); COLOR YELLOW (YELLOW); GLUCOSE NEGATIVE (NEGATIVE); KETONE NEGATIVE (NEGATIVE); NITRITE NEGATIVE (NEGATIVE); PROTEIN NEGATIVE (NEGATIVE); UROBILINOGEN NORMAL (NORMAL)
[2017-04-16 03:36] LABS: BASOPHILS 0.2 % (0-2); HEMOGLOBIN 12.7 g/dL (13.5-17.5); LYMPHOCYTES 26.5 % (15-50); MCH 27.7 pg (26.0-34.0); MCHC 31.8 g/dL (31.0-37.0); MCV 87.1 fL (80.0-100.0); MONOCYTES 8.8 % (2-11); NEUTROPHILS 62.5 % (40-80); PLATELET COUNT 180 10x3/uL (130-400); RBC 4.59 10x6/uL (4.20-6.10); RDW 16.1 % (11.5-14.5); WBC 5.9 10x3/uL (4.8-10.8)
[2017-04-16 03:49] LABS: HELICOBACTER PYLORI IGG NEGATIVE (NEGATIVE)
[2017-04-16 03:51] LABS: ALBUMIN 3.2 g/dL (3.4-5.0); ANION GAP 9.5 mmol/L (8-16); BILIRUBIN - TOTAL 0.19 mg/dL (0.2-1.3); CALCIUM 7.9 mg/dL (8.5-10.1); CARBON DIOXIDE 30.8 mmol/L (21.0-32.0); CREATININE - SERUM 1.4 mg/dL (0.6-1.3); POTASSIUM - SERUM 3.3 mmol/L (3.5-5.1); PROTEIN - SERUM 5.5 g/dL (6.4-8.2)
== END 2017-04-16 04:57 | disposition home or self-care (01) ==
LOC: D.ER 02:56
PROVIDERS: Emergency Medicine
DX: K27.9 Peptic ulcer, site unspecified, unspecified as acute or chronic, without hemorrhage or perforation (principal); I10 Essential (primary) hypertension

== ENCOUNTER 2017-04-17 23:35 | Emergency (ER) | payer MEDICARE ==
[2017-04-18 00:18] LABS: APPEARANCE CLEAR (CLEAR); BILIRUBIN NEGATIVE (NEGATIVE); COLOR YELLOW (YELLOW); GLUCOSE 500 mg/dL (NEGATIVE); KETONE NEGATIVE (NEGATIVE); NITRITE NEGATIVE (NEGATIVE); PROTEIN NEGATIVE (NEGATIVE); UROBILINOGEN NORMAL (NORMAL)
[2017-04-18 00:19] LABS: BASOPHILS 0.2 % (0-2); EOSINOPHILS 1.7 % (0-7); HEMATOCRIT 38.5 % (42.0-54.0); HEMOGLOBIN 12.4 g/dL (13.5-17.5); IMMATURE GRANULOCYTES 0.8 % (0-5); LYMPHOCYTES 31.9 % (15-50); MCH 27.9 pg (26.0-34.0); MCHC 32.2 g/dL (31.0-37.0); MCV 86.7 fL (80.0-100.0); MEAN PLATELET VOLUME 10.4 fL (7.4-10.4); MONOCYTES 9.9 % (2-11); NEUTROPHILS 55.5 % (40-80); PLATELET COUNT 191 10x3/uL (130-400); RBC 4.44 10x6/uL (4.20-6.10); RDW 17.3 % (11.5-14.5); WBC 4.7 10x3/uL (4.8-10.8)
[2017-04-18 01:06] LABS: ALBUMIN 3.1 g/dL (3.4-5.0); ALKALINE PHOSPHATASE 61 U/L (46-116); ALT (SGPT) 65 U/L (10-68); AMYLASE - SERUM 25 U/L (25-115); CALC OSMOLALITY 293 mosm/kg (275-300); CALCIUM 7.8 mg/dL (8.5-10.1); CHLORIDE - SERUM 110 mmol/L (98-107); CREATININE - SERUM 1.1 mg/dL (0.6-1.3); GLUCOSE 137 mg/dL (74-106); LIPASE 162 U/L (73-393); POTASSIUM - SERUM 3.2 mmol/L (3.5-5.1); PROTEIN - SERUM 5.3 g/dL (6.4-8.2); SODIUM 148 mmol/L (136-145); UREA NITROGEN 6 mg/dL (7-18); eGFR NON AFRICAN AMERICAN 79 mL/min (90-120)
== END 2017-04-18 05:27 | disposition home or self-care (01) ==
LOC: D.ER 23:35
PROVIDERS: Family Medicine
DX: K29.00 Acute gastritis without bleeding (principal); I10 Essential (primary) hypertension; F17.200 Nicotine dependence, unspecified, uncomplicated

== ENCOUNTER 2017-04-24 21:38 | Emergency (ER) | payer MEDICARE ==
[2017-04-24 22:37] LABS: APPEARANCE CLEAR (CLEAR); COLOR YELLOW (YELLOW); SPECIFIC GRAVITY 1.015 (1.005-1.020)
[2017-04-24 22:38] LABS: BILIRUBIN NEGATIVE (NEGATIVE); GLUCOSE 500 mg/dL (NEGATIVE); KETONE NEGATIVE (NEGATIVE); NITRITE NEGATIVE (NEGATIVE); PROTEIN NEGATIVE (NEGATIVE); UROBILINOGEN NORMAL (NORMAL)
[2017-04-24 22:40] LABS: BASOPHILS 0.2 % (0-2); EOSINOPHILS 1.5 % (0-7); HEMATOCRIT 42.2 % (42.0-54.0); HEMOGLOBIN 13.5 g/dL (13.5-17.5); IMMATURE GRANULOCYTES 0.8 % (0-5); LYMPHOCYTES 28.3 % (15-50); MCV 87.4 fL (80.0-100.0); MEAN PLATELET VOLUME 10.2 fL (7.4-10.4); MONOCYTES 8.9 % (2-11); NEUTROPHILS 60.3 % (40-80); PLATELET COUNT 159 10x3/uL (130-400); RBC 4.83 10x6/uL (4.20-6.10); RDW 17.4 % (11.5-14.5); WBC 4.8 10x3/uL (4.8-10.8)
[2017-04-24 22:50] LABS: ALBUMIN 3.2 g/dL (3.4-5.0); ANION GAP 15.7 mmol/L (8-16); BILIRUBIN - TOTAL 0.32 mg/dL (0.2-1.3); CALCIUM 7.5 mg/dL (8.5-10.1); CREATININE - SERUM 1.2 mg/dL (0.6-1.3); PROTEIN - SERUM 5.7 g/dL (6.4-8.2)
[2017-04-24 23:02] LABS: POTASSIUM - SERUM 2.7 mmol/L (3.5-5.1)
== END 2017-04-25 00:05 | disposition home or self-care (01) ==
LOC: D.ER 21:38
PROVIDERS: Emergency Medicine
DX: K29.00 Acute gastritis without bleeding (principal); I10 Essential (primary) hypertension

== ENCOUNTER → 2017-05-04 16:11 | Outpatient (CLI) | payer MEDICARE | END | disposition home or self-care (01) | LOC: D.LAB 16:11 | DX: K76.0 Fatty (change of) liver, not elsewhere classified (principal); R74.8 Abnormal levels of other serum enzymes ==

== ENCOUNTER 2017-05-08 16:36 | Emergency (ER) | payer MEDICARE ==
[2017-05-08 18:41] LABS: BASOPHILS 0.2 % (0-2); HEMATOCRIT 39.5 % (42.0-54.0); HEMOGLOBIN 12.4 g/dL (13.5-17.5); IMMATURE GRANULOCYTES 0.6 % (0-5); LYMPHOCYTES 18.4 % (15-50); MCH 27.8 pg (26.0-34.0); MCHC 31.4 g/dL (31.0-37.0); MCV 88.6 fL (80.0-100.0); MEAN PLATELET VOLUME 9.8 fL (7.4-10.4); MONOCYTES 9.5 % (2-11); NEUTROPHILS 70.3 % (40-80); PLATELET COUNT 151 10x3/uL (130-400); RBC 4.46 10x6/uL (4.20-6.10); RDW 17.7 % (11.5-14.5); WBC 6.2 10x3/uL (4.8-10.8)
[2017-05-08 19:03] LABS: ALBUMIN 3.2 g/dL (3.4-5.0); ANION GAP 13.3 mmol/L (8-16); BILIRUBIN - TOTAL 0.28 mg/dL (0.2-1.3); CALCIUM 7.9 mg/dL (8.5-10.1); CARBON DIOXIDE 26.3 mmol/L (21.0-32.0); CREATININE - SERUM 1.4 mg/dL (0.6-1.3); POTASSIUM - SERUM 3.6 mmol/L (3.5-5.1); PROTEIN - SERUM 5.8 g/dL (6.4-8.2)
[2017-05-08 19:17] LABS: APPEARANCE HAZY (CLEAR); BILIRUBIN NEGATIVE (NEGATIVE); COLOR YELLOW (YELLOW); GLUCOSE NEGATIVE (NEGATIVE); KETONE NEGATIVE (NEGATIVE); NITRITE NEGATIVE (NEGATIVE); PROTEIN NEGATIVE (NEGATIVE); UROBILINOGEN NORMAL (NORMAL)
== END 2017-05-08 22:44 | disposition home or self-care (01) ==
LOC: D.ER 16:36
PROVIDERS: Emergency Medicine
DX: R10.9 Unspecified abdominal pain (principal); K92.2 Gastrointestinal hemorrhage, unspecified; K64.9 Unspecified hemorrhoids; K21.9 Gastro-esophageal reflux disease without esophagitis

== ENCOUNTER 2017-06-01 05:55 | Day surgery (SDC) | payer MEDICARE ==
[2017-05-31 11:17] LABS: HEMATOCRIT 43.3 % (42.0-54.0); HEMOGLOBIN 13.8 g/dL (13.5-17.5); MCH 28.9 pg (26.0-34.0); MCHC 31.9 g/dL (31.0-37.0); MCV 90.6 fL (80.0-100.0); MEAN PLATELET VOLUME 9.5 fL (7.4-10.4); RBC 4.78 10x6/uL (4.20-6.10); RDW 16.6 % (11.5-14.5); WBC 9.9 10x3/uL (4.8-10.8)
[2017-05-31 11:21] LABS: ANION GAP 10.5 mmol/L (8-16); CALCIUM 8.6 mg/dL (8.5-10.1); CARBON DIOXIDE 26.8 mmol/L (21.0-32.0); CREATININE - SERUM 1.2 mg/dL (0.6-1.3); POTASSIUM - SERUM 4.3 mmol/L (3.5-5.1)
[~2017-06-01] VITALS: Ht 175.3 cm; Wt 94.3 kg
--- NOTE | ~2017-06-01 | OP ---
PATIENT NAME: YELENA KOENIG MEDICAL RECORD: [id number] :77 LOCATION:[facility] ADMISSION DATE: SURGEON: BRIAN TENA MD DATE OF OPERATION: 06/01/2017 SURGEON: Brian Tena MD PREOPERATIVE DIAGNOSIS: Bleeding internal hemorrhoids. POSTOPERATIVE DIAGNOSIS: Bleeding internal hemorrhoids. PROCEDURES PERFORMED: 1. Rectal examination under anesthesia. 2. Internal hemorrhoid banding times 3 Case was contaminated. ESTIMATED BLOOD LOSS: Minimal. OPERATIVE COURSE: After consent was obtained, the patient was taken to the operating room and placed in supine position on the operating table. Next, general anesthesia was given. Thereafter, a timeout was taken to confirm the correct patient and procedure. The patient was then placed into the lithotomy position. The perineum was prepped and draped in typical sterile fashion. A 30 cc of local anesthetic were injected in the perineal block. Digital rectal exam was performed. The rectum was then serially dilated using the [place]-Hill retractors. Internal hemorrhoids were noted at the left posterior, left lateral, and right anterior positions. All 3 internal hemorrhoid columns were banded using the internal hemorrhoid banding device. The rectum was then packed with Gelfoam and [place]. At the end of the case, all needle and instrument counts were correct. No complications occurred. The patient was extubated and transferred to the PACU in stable condition. TRANSINT:[id number] Voice Confirmation ID: [id number] DOCUMENT ID: [id number] BRIAN TENA MD at 1206 CC: [id number] DICTATION DATE: 06/01/17 0854 [employer] DRIVER: 06/01/17 1102 [facility] [address] [id number]
[~2017-06-01 05:55] MED LIST changes: +CARAFATE1 G PO; +PEPCID40 MG PO
[2017-06-01 07:14] VITALS: BP 159/89; Ht 175.3 cm; Wt 94.3 kg
[2017-06-01] MEDS ORDERED: ULTRAM50 MG PO (08:48)
[2017-06-01] MEDS ORDERED: MIRALAX17 GM PO (08:48)
== END 2017-06-01 10:50 | disposition home or self-care (01) ==
LOC: D.OPS 05:55 → D.PAN 08:00 → D.OPS 08:00
PROVIDERS: Anesthesiology
DX: K64.8 Other hemorrhoids (principal); Z01.812 Encounter for preprocedural laboratory examination

== ENCOUNTER 2017-06-11 03:01 | Emergency (ER) | payer MEDICARE, MEDICAID ==
[~2017-06-11 03:01] MED LIST changes: +MIRALAX17 GM PO; +ULTRAM50 MG PO
[2017-06-11 04:40] LABS: BASOPHILS 0.2 % (0-2); EOSINOPHILS 3.6 % (0-7); HEMATOCRIT 42.4 % (42.0-54.0); HEMOGLOBIN 13.2 g/dL (13.5-17.5); IMMATURE GRANULOCYTES 0.4 % (0-5); LYMPHOCYTES 15.8 % (15-50); MCH 28.2 pg (26.0-34.0); MCHC 31.1 g/dL (31.0-37.0); MCV 90.6 fL (80.0-100.0); MEAN PLATELET VOLUME 9.3 fL (7.4-10.4); MONOCYTES 8.5 % (2-11); NEUTROPHILS 71.5 % (40-80); RBC 4.68 10x6/uL (4.20-6.10); RDW 15.1 % (11.5-14.5); WBC 8.1 10x3/uL (4.8-10.8)
[2017-06-11 04:49] LABS: PLATELET COUNT 158 10x3/uL (130-400)
[2017-06-11 05:14] LABS: ALBUMIN 3.4 g/dL (3.4-5.0); ANION GAP 14.9 mmol/L (8-16); BILIRUBIN - TOTAL 0.51 mg/dL (0.2-1.3); CALCIUM 8.6 mg/dL (8.5-10.1); CARBON DIOXIDE 24.2 mmol/L (21.0-32.0); CREATININE - SERUM 1.7 mg/dL (0.6-1.3); POTASSIUM - SERUM 3.1 mmol/L (3.5-5.1); PROTEIN - SERUM 6.6 g/dL (6.4-8.2)
== END 2017-06-11 06:09 | disposition home or self-care (01) ==
LOC: D.ER 03:01
PROVIDERS: Family Medicine
DX: J06.9 Acute upper respiratory infection, unspecified (principal); R05 Cough; R07.9 Chest pain, unspecified; R51 Headache; R49.0 Dysphonia; K21.9 Gastro-esophageal reflux disease without esophagitis

== ENCOUNTER 2017-08-31 17:52 | Inpatient (IN) | payer MEDICARE, MEDICAID ==
[~2017-08-31] VITALS: Ht 175.3 cm; Wt 97.7 kg
[2017-08-31] VITALS (7 sets, daily range): BP systolic 163–201; BP diastolic 90–118
[2017-08-31 21:00] LABS: BASOPHILS 0.3 % (0-2); EOSINOPHILS 0.7 % (0-7); HEMOGLOBIN 12.9 g/dL (13.5-17.5); IMMATURE GRANULOCYTES 0.1 % (0-5); LYMPHOCYTES 13.8 % (15-50); MCH 26.6 pg (26.0-34.0); MCHC 31.5 g/dL (31.0-37.0); MCV 84.5 fL (80.0-100.0); NEUTROPHILS 78.1 % (40-80); RBC 4.85 10x6/uL (4.20-6.10); RDW 15.9 % (11.5-14.5); WBC 6.7 10x3/uL (4.8-10.8)
[2017-08-31 21:04] LABS: PLATELET COUNT 89 10x3/uL (130-400)
[2017-08-31 21:18] LABS: ALBUMIN 3.7 g/dL (3.4-5.0); ALKALINE PHOSPHATASE 72 U/L (46-116); ALT (SGPT) 46 U/L (10-68); CALC OSMOLALITY 276 mosm/kg (275-300); CALCIUM 8.5 mg/dL (8.5-10.1); CARBON DIOXIDE 26.4 mmol/L (21.0-32.0); CHLORIDE - SERUM 104 mmol/L (98-107); CREATININE - SERUM 1.3 mg/dL (0.6-1.3); POTASSIUM - SERUM 3.8 mmol/L (3.5-5.1); PROTEIN - SERUM 6.6 g/dL (6.4-8.2); SODIUM 140 mmol/L (136-145); UREA NITROGEN 8 mg/dL (7-18); eGFR NON AFRICAN AMERICAN 65 mL/min (90-120)
[2017-08-31 21:20] LABS: GLUCOSE 92 mg/dL (74-106)
[2017-08-31 21:38] LABS: CREATINE KINASE 387 UL (21-232); MAGNESIUM - SERUM 1.9 mg/dL (1.8-2.4); TROPONIN-I < 0.017 ng/mL (0.000-0.060)
[2017-08-31 21:41] LABS: CKMB 2.2 U/L (0.0-3.6); PLATELET ESTIMATE DECREASED
[2017-08-31 21:55] LABS: APPEARANCE CLEAR (CLEAR); BILIRUBIN NEGATIVE (NEGATIVE); COLOR YELLOW (YELLOW); GLUCOSE NEGATIVE (NEGATIVE); KETONE NEGATIVE (NEGATIVE); NITRITE NEGATIVE (NEGATIVE); PROTEIN NEGATIVE (NEGATIVE); UROBILINOGEN NORMAL (NORMAL)
[2017-08-31 21:56] LABS: BACTERIA FEW /hpf (NONE SEEN); MUCUS <1+ /lpf (NONE SEEN); RED CELLS - URINE OCC /hpf (0-5); WHITE CELLS - URINE 0-5 /hpf (0-5)
[2017-08-31 22:10] LABS: UDS - AMPHET NEGATIVE QUAL (NEGATIVE); UDS - BARB NEGATIVE QUAL (NEGATIVE); UDS - BENZO NEGATIVE QUAL (NEGATIVE); UDS - COCAINE NEGATIVE QUAL (NEGATIVE); UDS - OPIATE NEGATIVE QUAL (NEGATIVE); UDS - PCP NEGATIVE QUAL (NEGATIVE); UDS - THC NEGATIVE QUAL (NEGATIVE)
[2017-09-01] VITALS (8 sets, daily range): BP systolic 121–186; BP diastolic 70–112; Ht 175.3 cm; Wt 97.7 kg
[2017-09-01] MEDS ORDERED: PAXIL10 MG PO (01:47)
[2017-09-01] MEDS ORDERED: KLONOPIN1 MG PO (01:48)
[2017-09-01 16:17] LABS: % SATURATION 6 % (15-55); IRON 35 ug/dl (35-150); TOTAL IRON BIND CAPACITY 513 ug/dl (260-445)
[2017-09-01 16:18] LABS: UNSAT IRON BIND CAPACITY 478 ug/dl (150-375)
[2017-09-02] VITALS: BP 167/98
[2017-09-02 04:00] VITALS: BP 174/105
[2017-09-02 05:48] LABS: BASOPHILS 0.4 % (0-2); EOSINOPHILS 2.1 % (0-7); HEMATOCRIT 40.3 % (42.0-54.0); HEMOGLOBIN 12.4 g/dL (13.5-17.5); IMMATURE GRANULOCYTES 0.2 % (0-5); LYMPHOCYTES 25.3 % (15-50); MCH 26.3 pg (26.0-34.0); MCHC 30.8 g/dL (31.0-37.0); MCV 85.4 fL (80.0-100.0); MEAN PLATELET VOLUME 10.3 fL (7.4-10.4); MONOCYTES 9.9 % (2-11); NEUTROPHILS 62.1 % (40-80); RBC 4.72 10x6/uL (4.20-6.10); RDW 16.2 % (11.5-14.5)
[2017-09-02 05:49] LABS: PLATELET COUNT 148 10x3/uL (130-400); WBC 4.7 10x3/uL (4.8-10.8)
[2017-09-02 05:59] LABS: ANION GAP 9.9 mmol/L (8-16); CALCIUM 9.1 mg/dL (8.5-10.1); CARBON DIOXIDE 30.6 mmol/L (21.0-32.0); CREATININE - SERUM 1.3 mg/dL (0.6-1.3); POTASSIUM - SERUM 3.5 mmol/L (3.5-5.1)
[2017-09-02 08:38] VITALS: BP 145/95
[2017-09-02 09:20] LABS: FOLATE (FOLIC ACID) - SERUM 4.3 ng/mL (>3.0)
[2017-09-02 12:30] VITALS: BP 115/76
[2017-09-02] MEDS ORDERED: CARDIZEM CD240 MG PO (12:32)
[2017-09-02] MEDS ORDERED: PROTONIX40 MG PO (12:33)
== END 2017-09-02 14:06 | disposition home or self-care (01) | DRG 305 ==
LOC: D.ER 17:52 → D.M2 23:55
PROVIDERS: Emergency Medicine; Internal Medicine Nephrology
DX: I16.0 Hypertensive urgency (principal); T43.225A Adverse effect of selective serotonin reuptake inhibitors, initial encounter; K21.9 Gastro-esophageal reflux disease without esophagitis; F41.9 Anxiety disorder, unspecified; D64.9 Anemia, unspecified; D69.6 Thrombocytopenia, unspecified; T43.595A Adverse effect of other antipsychotics and neuroleptics, initial encounter

== ENCOUNTER 2017-09-16 12:59 | Observation (INO) | payer MEDICARE, MEDICAID ==
[2017-09-16] VITALS (9 sets, daily range): BP systolic 153–198; BP diastolic 81–117
[~2017-09-16] VITALS: Ht 175.3 cm; Wt 99.1 kg
[~2017-09-16 12:59] MED LIST changes: +CARDIZEM CD240 MG PO; +KLONOPIN1 MG PO; +PAXIL10 MG PO
[2017-09-16] MEDS ORDERED: TESTOSTERON200 MG/ML IM (13:18)
[2017-09-16] MEDS ORDERED: OMEPRAZOLE40 MG PO (13:18)
[2017-09-16 13:40] LABS: BASOPHILS 0.4 % (0-2); EOSINOPHILS 2.8 % (0-7); HEMATOCRIT 37.4 % (42.0-54.0); HEMOGLOBIN 11.6 g/dL (13.5-17.5); IMMATURE GRANULOCYTES 0.7 % (0-5); LYMPHOCYTES 15.6 % (15-50); MCH 26.4 pg (26.0-34.0); MCV 85.2 fL (80.0-100.0); MEAN PLATELET VOLUME 9.6 fL (7.4-10.4); MONOCYTES 7.9 % (2-11); NEUTROPHILS 72.6 % (40-80); RBC 4.39 10x6/uL (4.20-6.10); RDW 16.8 % (11.5-14.5); WBC 5.7 10x3/uL (4.8-10.8)
[2017-09-16 13:45] LABS: PLATELET COUNT 182 10x3/uL (130-400)
[2017-09-16 14:00] LABS: ALBUMIN 3.2 g/dL (3.4-5.0); ALKALINE PHOSPHATASE 53 U/L (46-116); ALT (SGPT) 60 U/L (10-68); BILIRUBIN - TOTAL 0.32 mg/dL (0.2-1.3); CALC OSMOLALITY 277 mosm/kg (275-300); CALCIUM 8.8 mg/dL (8.5-10.1); CARBON DIOXIDE 26.8 mmol/L (21.0-32.0); CHLORIDE - SERUM 104 mmol/L (98-107); CREATININE - SERUM 1.4 mg/dL (0.6-1.3); GLUCOSE 118 mg/dL (74-106); POTASSIUM - SERUM 3.8 mmol/L (3.5-5.1); PROTEIN - SERUM 6.2 g/dL (6.4-8.2); SODIUM 139 mmol/L (136-145); UREA NITROGEN 10 mg/dL (7-18); eGFR NON AFRICAN AMERICAN 59 mL/min (90-120)
[2017-09-16 14:08] LABS: PRO BNP 25 pg/mL (0-125)
[2017-09-16 14:10] LABS: TROPONIN-I < 0.017 ng/mL (0.000-0.060)
[2017-09-16 16:44] LABS: APPEARANCE CLEAR (CLEAR); BILIRUBIN NEGATIVE (NEGATIVE); COLOR YELLOW (YELLOW); GLUCOSE NEGATIVE (NEGATIVE); KETONE NEGATIVE (NEGATIVE); NITRITE NEGATIVE (NEGATIVE); PROTEIN NEGATIVE (NEGATIVE); UROBILINOGEN NORMAL (NORMAL)
[2017-09-16 21:16] LABS: UDS - AMPHET NEGATIVE QUAL (NEGATIVE); UDS - BARB NEGATIVE QUAL (NEGATIVE); UDS - BENZO NEGATIVE QUAL (NEGATIVE); UDS - COCAINE NEGATIVE QUAL (NEGATIVE); UDS - OPIATE NEGATIVE QUAL (NEGATIVE); UDS - PCP NEGATIVE QUAL (NEGATIVE); UDS - THC NEGATIVE QUAL (NEGATIVE)
[2017-09-17 00:51] VITALS: BP 168/93; BMI 32.8
[2017-09-17 04:00] VITALS: BP 164/93
[2017-09-17 06:15] LABS: BASOPHILS 0.4 % (0-2); HEMATOCRIT 36.1 % (42.0-54.0); IMMATURE GRANULOCYTES 0.6 % (0-5); LYMPHOCYTES 21.8 % (15-50); MCH 26.4 pg (26.0-34.0); MCHC 30.5 g/dL (31.0-37.0); MCV 86.6 fL (80.0-100.0); MEAN PLATELET VOLUME 9.9 fL (7.4-10.4); MONOCYTES 7.6 % (2-11); NEUTROPHILS 65.6 % (40-80); PLATELET COUNT 196 10x3/uL (130-400); RBC 4.17 10x6/uL (4.20-6.10); RDW 17.1 % (11.5-14.5)
[2017-09-17 06:33] LABS: ANION GAP 10.8 mmol/L (8-16); BILIRUBIN - TOTAL 0.3 mg/dL (0.2-1.3); CALCIUM 8.2 mg/dL (8.5-10.1); CARBON DIOXIDE 29.9 mmol/L (21.0-32.0); CREATININE - SERUM 1.2 mg/dL (0.6-1.3); POTASSIUM - SERUM 3.7 mmol/L (3.5-5.1); PROTEIN - SERUM 5.8 g/dL (6.4-8.2)
[2017-09-17 08:02] VITALS: BP 147/94
[2017-09-17 11:25] VITALS: BP 133/79
[2017-09-17 15:27] VITALS: Ht 175.3 cm; Wt 99.1 kg
[2017-09-17 15:39] VITALS: BP 168/86
[2017-09-17 21:42] VITALS: BP 160/81
[2017-09-18 01:22] VITALS: BP 144/73
[2017-09-18 05:37] VITALS: BP 169/79
[2017-09-18 08:14] VITALS: BP 159/78
[2017-09-18 13:45] VITALS: BP 140/77
== END 2017-09-18 15:20 | disposition home or self-care (01) ==
LOC: D.ER 12:59 → D.M2 22:43 → OBSVTIME 22:43 → D.M2 22:43
PROVIDERS: Emergency Medicine; Family Medicine
DX: I16.0 Hypertensive urgency (principal); N17.9 Acute kidney failure, unspecified; K21.9 Gastro-esophageal reflux disease without esophagitis; F41.9 Anxiety disorder, unspecified

== ENCOUNTER → 2017-10-11 08:13 | Outpatient (CLI) | payer MEDICARE ==
[2017-09-17 15:27] VITALS: BMI 32.8
[~2017-10-11 08:13] MED LIST changes: +OMEPRAZOLE40 MG PO; +TESTOSTERON200 MG/ML IM
[2017-10-11 09:13] LABS: ALBUMIN 3.1 g/dL (3.4-5.0); BILIRUBIN - DIRECT 0.09 mg/dL (0.00-0.30); BILIRUBIN - INDIRECT 0.36 mg/dL (0.00-1.00); BILIRUBIN - TOTAL 0.45 mg/dL (0.2-1.3); PROTEIN - SERUM 6.1 g/dL (6.4-8.2)
== END | disposition home or self-care (01) ==
LOC: D.LAB 09-02 09:30 → D.US 09-02 09:30 → D.LAB 09-02 10:00 → D.US 08:13
PROVIDERS: Internal Medicine Gastroenterology
DX: K76.0 Fatty (change of) liver, not elsewhere classified (principal); R79.89 Other specified abnormal findings of blood chemistry

== ENCOUNTER 2017-10-26 20:01 | Emergency (ER) | payer MEDICARE ==
[~2017-10-26] VITALS: Ht 175.3 cm; Wt 98.2 kg
[2017-10-26 20:05] VITALS: Ht 175.3 cm; Wt 98.2 kg
[2017-10-26 21:22] LABS: BASOPHILS 0.2 % (0-2); EOSINOPHILS 1.4 % (0-7); HEMOGLOBIN 12.5 g/dL (13.5-17.5); IMMATURE GRANULOCYTES 0.7 % (0-5); LYMPHOCYTES 22.6 % (15-50); MCH 26.7 pg (26.0-34.0); MCHC 32.1 g/dL (31.0-37.0); MCV 83.2 fL (80.0-100.0); MEAN PLATELET VOLUME 10.4 fL (7.4-10.4); MONOCYTES 9.1 % (2-11); PLATELET COUNT 160 10x3/uL (130-400); RBC 4.69 10x6/uL (4.20-6.10); RDW 16.3 % (11.5-14.5); WBC 5.7 10x3/uL (4.8-10.8)
[2017-10-26 21:38] LABS: ALBUMIN 3.4 g/dL (3.4-5.0); ALKALINE PHOSPHATASE 74 U/L (46-116); ALT (SGPT) 68 U/L (10-68); BILIRUBIN - TOTAL 0.36 mg/dL (0.2-1.3); CALC OSMOLALITY 273 mosm/kg (275-300); CALCIUM 8.1 mg/dL (8.5-10.1); CARBON DIOXIDE 29.8 mmol/L (21.0-32.0); CHLORIDE - SERUM 104 mmol/L (98-107); CREATININE - SERUM 1.5 mg/dL (0.6-1.3); GLUCOSE 105 mg/dL (74-106); PROTEIN - SERUM 6.4 g/dL (6.4-8.2); SODIUM 136 mmol/L (136-145); UREA NITROGEN 17 mg/dL (7-18); eGFR NON AFRICAN AMERICAN 55 mL/min (90-120)
[2017-10-26 21:46] LABS: TROPONIN-I < 0.017 ng/mL (0.000-0.060)
[2017-10-27 01:08] VITALS: BP 146/98
== END 2017-10-27 00:40 | disposition home or self-care (01) ==
LOC: D.ER 20:01
PROVIDERS: Family Medicine
DX: I10 Essential (primary) hypertension (principal)

== ENCOUNTER 2018-03-03 00:57 | Emergency (ER) | payer MEDICARE ==
[~2018-03-03] VITALS: Ht 175.3 cm; Wt 72.7 kg
[2018-03-03 01:06] VITALS: Ht 175.3 cm; Wt 72.7 kg
[2018-03-03 01:35] VITALS: BP 168/85
== END 2018-03-03 01:30 ==
LOC: D.ER 00:57
DX: F10.129 Alcohol abuse with intoxication, unspecified (principal); I10 Essential (primary) hypertension

== ENCOUNTER 2018-07-29 23:53 | Emergency (ER) | payer MEDICARE, MEDICAID ==
[2018-07-29 23:58] VITALS: BMI 30.5
[2018-07-30 00:30] LABS: APPEARANCE CLEAR (CLEAR); BILIRUBIN NEGATIVE (NEGATIVE); COLOR YELLOW (YELLOW); GLUCOSE NEGATIVE (NEGATIVE); KETONE NEGATIVE (NEGATIVE); NITRITE NEGATIVE (NEGATIVE); PROTEIN NEGATIVE (NEGATIVE); SPECIFIC GRAVITY 1.015 (1.005-1.020); UROBILINOGEN NORMAL (NORMAL)
[2018-07-30 00:35] LABS: BASOPHILS 0.4 % (0-2); EOSINOPHILS 3.9 % (0-7); HEMATOCRIT 46.4 % (42.0-54.0); HEMOGLOBIN 16.1 g/dL (13.5-17.5); LYMPHOCYTES 26.9 % (15-50); MCH 32.2 pg (26.0-34.0); MCHC 34.7 g/dL (31.0-37.0); MCV 92.8 fL (80.0-100.0); MEAN PLATELET VOLUME 9.9 fL (7.4-10.4); MONOCYTES 7.2 % (2-11); NEUTROPHILS 60.6 % (40-80); RDW 14.5 % (11.5-14.5); WBC 7.9 10x3/uL (4.8-10.8)
[2018-07-30 00:46] LABS: PLATELET COUNT 195 10x3/uL (130-400)
[2018-07-30 00:49] LABS: UDS - AMPHET NEGATIVE QUAL (NEGATIVE); UDS - BARB NEGATIVE QUAL (NEGATIVE); UDS - BENZO NEGATIVE QUAL (NEGATIVE); UDS - COCAINE NEGATIVE QUAL (NEGATIVE)
[2018-07-30 01:02] LABS: UDS - OPIATE NEGATIVE QUAL (NEGATIVE); UDS - PCP NEGATIVE QUAL (NEGATIVE); UDS - THC NEGATIVE QUAL (NEGATIVE)
[2018-07-30 01:02] LABS: ALBUMIN 3.8 g/dL (3.4-5.0); ANION GAP 16.8 mmol/L (8-16); BILIRUBIN - TOTAL 0.27 mg/dL (0.2-1.3); CALCIUM 8.4 mg/dL (8.5-10.1); CARBON DIOXIDE 22.8 mmol/L (21.0-32.0); CREATININE - SERUM 1.6 mg/dL (0.6-1.3); MAGNESIUM - SERUM 2.2 mg/dL (1.8-2.4); POTASSIUM - SERUM 3.6 mmol/L (3.5-5.1); PROTEIN - SERUM 7.4 g/dL (6.4-8.2)
[2018-07-30 10:14] VITALS: BP 132/71
[2018-08-25] MEDS ORDERED: LIPITOR10 MG PO (10:34)
[2018-08-25] MEDS ORDERED: BUPROPION XL150 MG PO (10:35)
[2018-08-25] MEDS ORDERED: TOFRANIL25 MG PO (10:36)
[2018-08-25] MEDS ORDERED: LITHIUM CARBON300 MG PO ×2 (10:36→10:37)
[2018-08-25] MEDS ORDERED: SEROQUEL200 MG PO (10:37)
[2018-08-25] MEDS ORDERED: CELEXA40 MG PO (10:37)
[2018-08-25] MEDS ORDERED: COZAAR100 MG PO ×2 (10:38→18:50)
[2018-08-25] MEDS ORDERED: ULTRAM50 MG PO (10:39)
[2018-08-25] MEDS ORDERED: CATAPRES0.1 MG PO (10:39)
[2018-08-25] MEDS ORDERED: ATIVAN0.5 MG PO (10:40)
[2018-08-25] MEDS ORDERED: XANAX1 MG PO (10:40)
[2018-08-29] MEDS ORDERED: MULTI-DAY VITAM1 TAB PO (09:43)
== END 2018-07-30 10:28 ==
LOC: D.ER 23:53
PROVIDERS: Family Medicine
DX: R45.851 Suicidal ideations (principal); F10.10 Alcohol abuse, uncomplicated

== ENCOUNTER 2018-08-25 10:27 | Inpatient (IN) | payer MEDICARE, MEDICAID | END 2018-08-29 15:32 | disposition home or self-care (01) | DRG 897 | LOC: D.ER 10:27 → D.ICU 19:18 → D.M3 08-28 18:31 | PROVIDERS: ADMIT Emergency Medicine | DX: F13.239 Sedative, hypnotic or anxiolytic dependence with withdrawal, unspecified (principal); I16.9 Hypertensive crisis, unspecified; N17.9 Acute kidney failure, unspecified; F10.10 Alcohol abuse, uncomplicated; I12.9 Hypertensive chronic kidney disease with stage 1 through stage 4 chronic kidney disease, or unspecified chronic kidney disease; N18.3 Chronic kidney disease, stage 3 (moderate); K21.9 Gastro-esophageal reflux disease without esophagitis; F41.9 Anxiety disorder, unspecified; G89.29 Other chronic pain ==